=== PATIENT | male | born 1975 | race Caucasian/White ===

== ENCOUNTER 2018-10-21 10:26 | Emergency (ER) | payer OTHER, BC ==
[~2018-10-21] VITALS: Ht 188 cm; Wt 104.3 kg
[2018-10-21] MEDS ORDERED: ZONISAMIDE100 MG PO (10:50)
== END 2018-10-21 12:10 | disposition home or self-care (01) ==
LOC: ED 10:26
PROC: 0HQEXZZ Repair Left Lower Arm Skin, External Approach (ICD-10-PCS; principal; 2018-10-21)
DX: S51.812A Laceration without foreign body of left forearm, initial encounter (principal); W26.8XXA Contact with other sharp object(s), not elsewhere classified, initial encounter; Y99.0 Civilian activity done for income or pay; F17.200 Nicotine dependence, unspecified, uncomplicated; Z88.0 Allergy status to penicillin; Z79.899 Other long term (current) drug therapy
CPT/HCPCS: 12004; 99282-25

== ENCOUNTER 2019-12-11 12:46 | Emergency (ER) | payer OTHER, BC ==
[~2019-12-11] VITALS: Ht 188 cm; Wt 104.3 kg
[~2019-12-11 12:46] MED LIST: ZONISAMIDE100 MG PO
[2019-12-11] MEDS ORDERED: LIDODERM1 EACH TD (13:30)
[2019-12-11] MEDS ORDERED: NORCO 10-325 T1 EACH PO (13:30)
[2019-12-11] MEDS ORDERED: NAPROSYN500 MG PO (13:30)
== END 2019-12-11 13:42 | disposition home or self-care (01) ==
LOC: ED 12:46
DX: M54.16 Radiculopathy, lumbar region (principal); F17.200 Nicotine dependence, unspecified, uncomplicated; Z88.0 Allergy status to penicillin
CPT/HCPCS: 96372; 99283; J1885